=== PATIENT | male | born 1950 | race Caucasian/White ===

== ENCOUNTER 2020-03-28 14:40 | Outpatient (CLI) | payer MEDICARE, OTHER ==
[2020-03-28] MEDS ORDERED: LAN0.125T PO (15:13)
[2020-03-28] MEDS ORDERED: FURO20TA4 PO (15:13)
[2020-03-28] MEDS ORDERED: SPIR50TA5 PO (15:13)
[2020-03-28] MEDS ORDERED: LISI-604 PO (15:13)
[2020-03-28] MEDS ORDERED: METO-411 PO (15:13)
[2020-03-28] MEDS ORDERED: DABI150C PO (15:13)
[2020-03-28] MEDS ORDERED: MAGN100T5 PO (15:14)
[2020-03-28] MEDS ORDERED: ESOM40CA54 PO (15:15)
[2020-03-28 16:39] LABS: BASOPHILS % (AUTO) 0.8 % (0-1); EOSINOPHILS # (AUTO) 0.1 X10'3 (0-0.9); LYMPHOCYTES % (AUTO) 17.9 % (21-51); MEAN CORPUSCULAR HEMOGLOBIN 33.9 PG (27.0-31.0); MEAN CORPUSCULAR HGB CONC 34.2 g/dL (33.0-36.5); MEAN CORPUSCULAR VOLUME 99.3 FL (78-98); MEAN PLATELET VOLUME 9.5 FL (7.4-10.4); MONOCYTES # (AUTO) 0.5 X10'3 (0-0.9); NEUTROPHILS # (AUTO) 4.1 X10'3 (1.8-7.7); NEUTROPHILS % (AUTO) 71.3 % (42-75); PRE OP HEMATOCRIT 41.5 % (42.0-52.0); PRE OP HEMOGLOBIN 14.2 g/dL (14.0-17.9); PRE OP PLATELET COUNT 209 X10'3 (140-440); RED BLOOD COUNT 4.18 X10'6 (4.70-6.10); RED CELL DISTRIBUTION WIDTH 13.5 % (11.5-14.5)
[2020-03-28 16:55] LABS: PRE OP INR 1.1 INR
[2020-03-28 17:06] LABS: ALBUMIN 3.3 G/DL (3.4-5.0); ALBUMIN/GLOBULIN RATIO 0.8 (1.1-1.5); ALKALINE PHOSPHATASE 87 IU/L (46-116); BLOOD UREA NITROGEN 20 MG/DL (7-18); BUN/CREATININE RATIO 12.1 (5.4-32.0); CALCIUM 9.1 MG/DL (8.5-10.1); CHLORIDE 96 MMOL/L (99-107); CREATININE 1.65 MG/DL (0.60-1.10); PRE OP ALT 39 U/L (30-65); PRE OP ANION GAP 8 (8-16); PRE OP AST 20 U/L (10-37); PRE OP BILIRUB, TOTAL 0.5 MG/DL (0.0-1.0); PRE OP POTASSIUM 4.6 MMOL/L (3.4-5.1); TOTAL CARBON DIOXIDE 25.5 MMOL/L (24-32); TOTAL PROTEIN 7.6 G/DL (6.4-8.2); eGFR 41 ML/MIN
[2020-03-28 17:11] LABS: PRE OP SODIUM 129 MMOL/L (135-145)
[2020-03-28 17:15] LABS: PRE OP GLUCOSE 676 MG/DL (70-104)
[2020-03-28 17:35] LABS: PRE OP PROTIME 11.8 SECONDS (9.0-12.0)
== END 2020-03-28 23:59 | disposition home or self-care (01) ==
LOC: PRE-OP 14:40 → EDSTATUS 04-04 08:00
PROVIDERS: ATTEND Otolaryngology
DX: J32.8 Other chronic sinusitis (principal); Z53.9 Procedure and treatment not carried out, unspecified reason; Z20.828 Contact with and (suspected) exposure to other viral communicable diseases; I48.91 Unspecified atrial fibrillation; I10 Essential (primary) hypertension; G47.30 Sleep apnea, unspecified
CPT/HCPCS: 36415; 80053; 83036; 85025; 85576; 85610; 85730; 87635

== ENCOUNTER 2020-03-29 12:28 | Emergency (ER) | payer MEDICARE, OTHER ==
[~2020-03-29] VITALS: Ht 172.7 cm; Wt 95.0 kg
[~2020-03-29 12:28] MED LIST: DABI150C PO; ESOM40CA54 PO; FURO20TA4 PO; LAN0.125T PO; LISI-604 PO; METO-411 PO; SPIR50TA5 PO
[2020-03-29 13:26] LABS: BASOPHILS # (AUTO) 0.1 X10'3 (0-0.2); BASOPHILS % (AUTO) 1.2 % (0-1); EOSINOPHILS # (AUTO) 0.1 X10'3 (0-0.9); EOSINOPHILS % (AUTO) 1.2 % (0-6); HEMATOCRIT 42.4 % (42.0-52.0); HEMOGLOBIN 14.4 g/dl (14.0-17.9); LYMPHOCYTES # (AUTO) 1.2 X10'3 (1.1-4.8); LYMPHOCYTES % (AUTO) 17.4 % (21-51); MEAN CORPUSCULAR HEMOGLOBIN 33.6 PG (27.0-31.0); MEAN CORPUSCULAR HGB CONC 33.9 g/dL (33.0-36.5); MEAN PLATELET VOLUME 9.7 FL (7.4-10.4); MONOCYTES # (AUTO) 0.5 X10'3 (0-0.9); MONOCYTES % (AUTO) 7.3 % (2-12); NEUTROPHILS % (AUTO) 72.9 % (42-75); PLATELET COUNT 209 X10'3 (140-440); RED BLOOD COUNT 4.28 X10'6 (4.70-6.10); RED CELL DISTRIBUTION WIDTH 13.3 % (11.5-14.5); WHITE BLOOD COUNT 6.9 X10'3 (4.5-11.0)
[2020-03-29 13:48] LABS: ALANINE AMINOTRANSFERASE 40 U/L (12-78); ALBUMIN 3.3 G/DL (3.4-5.0); ALBUMIN/GLOBULIN RATIO 0.7 (1.1-1.5); ALKALINE PHOSPHATASE 83 IU/L (46-116); ANION GAP 9 (8-16); ASPARTATE AMINO TRANSFERASE 18 U/L (10-37); BILIRUBIN,TOTAL 0.5 MG/DL (0.1-1.0); BLOOD UREA NITROGEN 19 MG/DL (7-18); BUN/CREATININE RATIO 12.7 (5.4-32.0); CALCIUM 9.3 MG/DL (8.5-10.1); CHLORIDE 98 MMOL/L (99-107); POTASSIUM 4.5 MMOL/L (3.5-5.1); SODIUM 130 MMOL/L (135-145); TOTAL CARBON DIOXIDE 22.9 MMOL/L (24-32); TOTAL PROTEIN 7.8 G/DL (6.4-8.2); eGFR 46 ML/MIN
[2020-03-29 13:54] LABS: GLUCOSE 599 MG/DL (70-104)
[2020-03-29] MEDS ORDERED: normal saline 1000ml 1,000 ML IV ONE (16:35)
[2020-03-29 17:30] LABS: CLARITY,URINE CLEAR (Clear); COLOR,URINE YELLOW (Yellow); GLUCOSE, URINE >=1000 mg/dl (Neg); KETONES,URINE NEGATIVE (Neg); LEUKOCYTE ESTERASE ,URINE NEGATIVE (Neg); NITRITES, URINE NEGATIVE (Neg); OCCULT BLOOD,URINE NEGATIVE (Neg); PH,URINE 5.5 (4.8-8.0); PROTEIN,URINE NEGATIVE (Neg); UROBILINOGEN,URINE 0.2 E.U/dL (0.2-1.0)
[2020-03-29 17:31] LABS: UA COLLECTION TYPE CLN CATCH MIDSTREAM
[2020-03-29 17:44] LABS: BACTERIA,URINE NONE SEEN /HPF (Neg); RBC,URINE 0-2 /HPF (0-2); SQUAMOUS EPITHELIAL CELL,UR NONE SEEN /LPF (FEW); WBC,URINE 0-4 /HPF (0-4)
[2020-03-29 17:45] LABS: MUCUS STRANDS NONE SEEN /LPF (Neg)
[2020-03-29 18:13] VITALS: BP 133/75
== END 2020-03-29 18:20 | disposition home or self-care (01) ==
LOC: ER 12:28
DX: R73.9 Hyperglycemia, unspecified (principal); I48.91 Unspecified atrial fibrillation; Z98.890 Other specified postprocedural states; Z88.5 Allergy status to narcotic agent; Z79.899 Other long term (current) drug therapy
CPT/HCPCS: 36415; 80053; 81001; 82948; 85025; 96360; 99283; J7030

== ENCOUNTER 2023-02-11 10:25 | Day surgery (SDC) | payer MEDICARE, OTHER ==
[~2023-02-11] VITALS: Ht 172.7 cm; Wt 100.8 kg
[2023-02-11] VITALS (10 sets, daily range): BP systolic 90–107; BP diastolic 57–71; PULSE 54–95; RESP 16; TEMP 97.9; O2SAT 95–97
[~2023-02-11 10:25] MED LIST changes: -LISI-604 PO; +LISI5TAB22 PO
[2023-02-11] MEDS ORDERED: normal saline 1000ml 1,000 ML IV SCH (11:05)
[2023-02-11] MEDS ORDERED: fentaNYL/PF 50MCG/1 ML 2ML syringe IV ONE (11:05)
[2023-02-11] MEDS ORDERED: MIDAZolam 1mg/ml 10ml vial IV ONE (11:05)
[2023-02-11] MEDS ORDERED: ATOR20TA66 PO (11:12)
[2023-02-11] MEDS ORDERED: AMI200T PO (11:14)
[2023-02-11] MEDS ORDERED: POTA-207 PO (11:17)
[2023-02-11] MEDS ORDERED: APIX5TAB3 PO (11:17)
[2023-02-11] MEDS ORDERED: MAGN200T8 PO (11:17)
== END 2023-02-11 13:35 | disposition home or self-care (01) ==
LOC: SSTAY O 10:25
PROVIDERS: ATTEND Student in an Organized Health Care Education/Training Program
DX: I48.91 Unspecified atrial fibrillation (principal); I11.0 Hypertensive heart disease with heart failure; I50.9 Heart failure, unspecified; E78.5 Hyperlipidemia, unspecified; G47.33 Obstructive sleep apnea (adult) (pediatric); E11.9 Type 2 diabetes mellitus without complications; I71.9 Aortic aneurysm of unspecified site, without rupture; I48.92 Unspecified atrial flutter; Z87.891 Personal history of nicotine dependence; Z79.899 Other long term (current) drug therapy; Z79.82 Long term (current) use of aspirin; Z88.5 Allergy status to narcotic agent
CPT/HCPCS: 92960; 93005; J2250; J3010; J7030; A4620

== ENCOUNTER 2024-05-25 10:37 | Day surgery (SDC) | payer MEDICARE ==
[~2024-05-25] VITALS: Ht 172.7 cm; Wt 104.4 kg
[2024-05-25] VITALS (8 sets, daily range): BP systolic 97–118; BP diastolic 65–77; PULSE 62–91; RESP 12–16; TEMP 97.6; O2SAT 92–97
[~2024-05-25 10:37] MED LIST changes: +AMI200T PO; +APIX5TAB3 PO; +ATOR20TA66 PO; -DABI150C PO; +DAPA10TA PO; -ESOM40CA54 PO; +FOLI1CAP8 PO; -LAN0.125T PO; +LISI2.5T14 PO; -LISI5TAB22 PO; +MAGN500C4 PO; +METF-900 PO; +METO-384 PO; -METO-411 PO; +MULT-1172 PO; +NYST100069 PO; +OSC500T PO; +POTA-207 PO; -SPIR50TA5 PO; +THIO200T; +VITA100C25
[2024-05-25] MEDS ORDERED: MIDAZolam 1mg/ml 10ml vial IV ONE (11:05)
[2024-05-25] MEDS ORDERED: fentaNYL/PF 50MCG/1 ML 2ML syringe IV ONE (11:05)
[2024-05-25] MEDS ORDERED: normal saline 1000ml 1,000 ML IV SCH (11:05)
[2024-05-25] MEDS ORDERED: AMIO200T72 PO (11:23)
[2024-05-25] MEDS ORDERED: PREG25CA19 PO (11:23)
[2024-05-25] MEDS ORDERED: fentaNYL/PF 50MCG/1 ML 2ML syringe ONE (11:56)
[2024-05-25] MEDS ORDERED: midazolam 1 mg/ML 2ml injection ONE ×2 (11:56→12:27)
[2024-05-25] MEDS ORDERED: amiodarone 50MG/ML inj IV ONE (12:06)
[2024-05-25] MEDS ORDERED: atropine 0.1mg/ml 10ml syringe ONE (12:06)
== END 2024-05-25 14:55 | disposition home or self-care (01) ==
LOC: SSTAY O 10:37
PROVIDERS: ATTEND Internal Medicine Interventional Cardiology
DX: I48.91 Unspecified atrial fibrillation (principal); I44.4 Left anterior fascicular block; I25.2 Old myocardial infarction; R94.31 Abnormal electrocardiogram [ECG] [EKG]; I11.0 Hypertensive heart disease with heart failure; I50.9 Heart failure, unspecified; E11.9 Type 2 diabetes mellitus without complications; E78.00 Pure hypercholesterolemia, unspecified; Z87.891 Personal history of nicotine dependence; Z79.01 Long term (current) use of anticoagulants; Z79.84 Long term (current) use of oral hypoglycemic drugs; Z79.899 Other long term (current) drug therapy; Z88.5 Allergy status to narcotic agent
CPT/HCPCS: 92960; 93005; J0282; J2250; J3010; J7030; 99152; 99153; J0461